=== PATIENT | female | born 1985 | race African-American/Black ===

== ENCOUNTER 2016-08-24 18:11 | Emergency (ER) | payer MEDICAID ==
[~2016-08-24] VITALS: Ht 160 cm; Wt 52.5 kg
[2016-08-24 18:56] VITALS: BP 123/90
== END 2016-08-24 21:47 | disposition left against medical advice (07) ==
LOC: ER 19:30
DX: R06.02 Shortness of breath (principal); R09.89 Other specified symptoms and signs involving the circulatory and respiratory systems; Z98.890 Other specified postprocedural states

== ENCOUNTER 2019-03-25 13:43 | Observation (INO) | payer MEDICAID ==
[~2019-03-25] VITALS: Ht 162.6 cm; Wt 66.2 kg
[2019-03-25] MEDS ORDERED: PNV1TABL50 PO (14:19)
== END 2019-03-25 15:05 | disposition home or self-care (01) ==
LOC: 8EST 13:43 → 8 EST LDRP 14:13
PROVIDERS: ADMIT Obstetrics & Gynecology; ATTEND Obstetrics & Gynecology
DX: O60.03 Preterm labor without delivery, third trimester (principal); Z3A.34 34 weeks gestation of pregnancy
CPT/HCPCS: 99281; G0378

== ENCOUNTER 2019-04-20 12:27 | Observation (INO) | payer MEDICAID ==
[~2019-04-20] VITALS: Ht 162.6 cm; Wt 66.2 kg
[~2019-04-20 12:27] MED LIST: PNV1TABL50 PO
== END 2019-04-20 14:10 | disposition home or self-care (01) ==
LOC: 8 EST LDRP 12:27
PROVIDERS: ADMIT Specialist; ATTEND Specialist
DX: O46.93 Antepartum hemorrhage, unspecified, third trimester (principal); O62.9 Abnormality of forces of labor, unspecified; Z3A.37 37 weeks gestation of pregnancy
CPT/HCPCS: 99281; G0378

== ENCOUNTER 2019-04-22 23:11 | Inpatient (IN) | payer MEDICAID ==
[~2019-04-22] VITALS: Ht 160 cm; Wt 66.7 kg
[2019-04-23] MEDS ORDERED: LACTATED RINGERS 1,000 ML IV SCH (00:01)
[2019-04-23] MEDS ORDERED: DEXT 5%/LR + PITOCIN 20UNITS/L 1,000 ML IV SCH ×2 (00:01→04:14)
[2019-04-23] MEDS ORDERED: METHYLERGONOVINE MALEATE 0.2 MG/ML IM PRN (00:15)
[2019-04-23] MEDS ORDERED: BUTORPHANOL TARTRATE 2 MG/ML VIAL IV PRN (00:15)
[2019-04-23] MEDS ORDERED: NALOXONE HCL 0.4 MG/ML 1ML VIAL IM PRN (00:15)
[2019-04-23] MEDS ORDERED: LIDOCAINE HCL 1% 20ML VIAL (Pyxis) INJ INFIL SCH (00:15)
[2019-04-23] MEDS ORDERED: CARBOPROST TROMETHAMINE 250 MCG/ML AMPUL IM PRN (00:15)
[2019-04-23] MEDS ORDERED: MISOPROSTOL 100MCG TABLET VG SCH (00:15)
[2019-04-23] MEDS ORDERED: AMPICILLIN 2,000 MG in SODIUM CHLORIDE 0.9% 100 ML IV NR (00:30)
[2019-04-23] MEDS ORDERED: ROPIVACAINE HCL/PF EPIDURAL 200 ML EPI SCH (00:45)
[2019-04-23 01:32] LABS: CLARITY URINE CLEAR (CLEAR); COLOR URINE YELLOW (YELLOW); KETONES URINE NEGATIVE (NEGATIVE); LEUKOCYTE ESTERASE URINE 3+ (NEGATIVE); NITRITE URINE NEGATIVE (NEGATIVE); OCCULT BLOOD URINE NEGATIVE (NEGATIVE); PROTEIN URINE NEGATIVE (NEGATIVE); SPECIFIC GRAVITY URINE 1.008 (1.005-1.030); UROBILINOGEN URINE 0.2 E.U./dL (0.2-1.0)
[2019-04-23 01:33] LABS: BASOPHILS % 0.1 % (0.0-2.0); EOSINOPHILS % 0.3 % (0.0-5.0); HEMATOCRIT. 31.7 % (36.0-48.0); HEMOGLOBIN. 10.5 g/dL (12.0-16.0); LYMPHOCYTES % 20.4 % (20.0-50.0); MEAN CORPUSCULAR HEMOGLOBIN 28.5 pg (28.0-32.0); MEAN CORPUSCULAR VOLUME 86.4 fL (81.0-99.0); MEAN PLATELET VOLUME 10.3 fl (7.4-10.4); MONOCYTES % 5.1 % (2.0-8.0); NEUTROPHILS % 74.1 % (40.0-76.0); PLATELET 196 x1000/uL (130-400); RED BLOOD CELL COUNT 3.67 mill/uL (4.2-5.4); RED CELL DISTRIBUTION WIDTH 14.1 % (11.6-14.6)
[2019-04-23 01:51] LABS: *AMPHETAMINES SCREEN URINE NEGATIVE (NEGATIVE); *BENZODIAZEPINES SCREEN URINE NEGATIVE (NEGATIVE); *COCAINE SCREEN URINE NEGATIVE (NEGATIVE); OPIATES URINE SCREEN NEGATIVE (NEGATIVE)
[2019-04-23 01:52] LABS: CANNABINOID URINE SCREEN PRESUMTIVE POSITIVE (NEGATIVE); PHENCYCLIDINE URINE SCREEN NEGATIVE (NEGATIVE)
[2019-04-23 01:52] LABS: INR 0.9; PARTIAL THROMBOPLASTIN TIME 27.8 sec (23.4-31.0); PROTHROMBIN TIME 9.7 sec (9.6-11.0)
[2019-04-23 01:57] LABS: METHADONE URINE SCREEN NEGATIVE (NEGATIVE)
[2019-04-23 01:58] LABS: *BARBITURATES SCREEN URINE NEGATIVE (NEGATIVE)
[2019-04-23 02:15] LABS: HEPATITIS B SURFACE ANTIGEN NEGATIVE
[2019-04-23] MEDS ORDERED: IBUPROFEN 400MG TABLET PO PRN (04:15)
[2019-04-23] MEDS ORDERED: RHO(D) IMMUNE GLOBULIN 300 MCG/SYR IM PRN (04:15)
[2019-04-23] MEDS ORDERED: AMPICILLIN 1,000 MG in SODIUM CHLORIDE 0.9% 50 ML IV SCH (06:00)
[2019-04-23 06:30] VITALS: BP 113/60
[2019-04-23] MEDS: IBUPROFEN 800MG TABLET PO PRN ×3 (07:39→20:28)
[2019-04-23 07:50] VITALS: BP 127/59
[2019-04-23 14:00] VITALS: BP 120/73
[2019-04-23 20:27] VITALS: BP 125/59
[2019-04-23 23:54] VITALS: BP 131/78
[2019-04-24 05:16] VITALS: BP 122/79
[2019-04-24] MEDS: IBUPROFEN 800MG TABLET PO PRN ×2 (05:16→19:43)
[2019-04-24 06:48] LABS: BASOPHILS % 0.4 % (0.0-2.0); EOSINOPHILS % 0.6 % (0.0-5.0); HEMATOCRIT. 31.8 % (36.0-48.0); HEMOGLOBIN. 10.5 g/dL (12.0-16.0); LYMPHOCYTES % 30.7 % (20.0-50.0); MEAN CORPUSCULAR HEMOGLOBIN 28.6 pg (28.0-32.0); MEAN CORPUSCULAR VOLUME 86.4 fL (81.0-99.0); MEAN PLATELET VOLUME 10.2 fl (7.4-10.4); NEUTROPHILS % 63.3 % (40.0-76.0); PLATELET 184 x1000/uL (130-400); RED BLOOD CELL COUNT 3.68 mill/uL (4.2-5.4); RED CELL DISTRIBUTION WIDTH 13.7 % (11.6-14.6)
[2019-04-24 09:00] VITALS: BP 113/79
[2019-04-24 17:05] VITALS: BP 112/66
[2019-04-24 19:30] VITALS: BP 124/77
[2019-04-25 04:00] VITALS: BP 131/68
[2019-04-25] MEDS: IBUPROFEN 800MG TABLET PO PRN (05:02)
[2019-04-25 09:00] VITALS: BP 121/73
[2019-04-28 13:06] LABS: CANNABINOID CONFIRMATION URINE Positive (.)
== END 2019-04-25 12:15 | disposition home or self-care (01) | DRG 560 ==
LOC: 8 EST LDRP 23:11 → OBSVTOIN 23:11 → 8EST 04-23 05:38
PROVIDERS: ADMIT Obstetrics & Gynecology; ATTEND Obstetrics & Gynecology
PROC: 10E0XZZ Delivery of Products of Conception, External Approach (ICD-10-PCS; principal; 2019-04-23)
PROC: 3E0R3BZ Introduction of Anesthetic Agent into Spinal Canal, Percutaneous Approach (ICD-10-PCS; 2019-04-23)
PROC: 00HU33Z Insertion of Infusion Device into Spinal Canal, Percutaneous Approach (ICD-10-PCS; 2019-04-23)
DX: O80 Encounter for full-term uncomplicated delivery (principal); Z37.0 Single live birth; Z3A.38 38 weeks gestation of pregnancy
CPT/HCPCS: 36415; 80305; 80349; 81003; 86592; 86703; 86762; 86850; 86900; 87340; 99281; J0290; J2590; J2795; J7050

== ENCOUNTER 2022-12-17 20:04 | Emergency (ER) | payer MEDICAID ==
[~2022-12-17] VITALS: Ht 160 cm; Wt 60.2 kg
[2022-12-17 20:36] VITALS: O2SAT 99
[2022-12-17] MEDS ORDERED: ONDANSETRON HCL 4MG TABLET PO ONE (23:00)
[2022-12-18] MEDS ORDERED: ACETAMINOPHEN 325MG TABLET PO ONE (01:15)
[2022-12-18 01:29] LABS: HCG SCREEN POSITIVE
[2022-12-18] MEDS ORDERED: TOPUD MT (02:02)
[2022-12-18 02:08] VITALS: BP 117/72; PULSE 97; RESP 16; TEMP 99
== END 2022-12-18 02:13 | disposition home or self-care (01) ==
LOC: ER 20:04
DX: O26.892 Other specified pregnancy related conditions, second trimester (principal); Z3A.18 18 weeks gestation of pregnancy
CPT/HCPCS: 76805; 84703; 99284